=== PATIENT | male | born 1980 | race Caucasian/White ===

== ENCOUNTER 2019-02-09 11:52 | Emergency (ER) | payer OTHER ==
[~2019-02-09] VITALS: Ht 175.3 cm; Wt 90.7 kg
[2019-02-09] MEDS ORDERED: PENICILLIN V P500 MG PO (12:13)
== END 2019-02-09 12:21 | disposition home or self-care (01) ==
LOC: ED 11:52
DX: K08.89 Other specified disorders of teeth and supporting structures (principal); F17.200 Nicotine dependence, unspecified, uncomplicated
CPT/HCPCS: 99282

== ENCOUNTER 2022-11-29 13:13 | Emergency (ER) | payer OTHER ==
[~2022-11-29] VITALS: Ht 175.3 cm; Wt 98.8 kg
[~2022-11-29 13:13] MED LIST: PENICILLIN V P500 MG PO
[2022-11-29] MEDS ORDERED: PREDNISONE20 MG PO (14:36)
[2022-11-29 14:44] VITALS: BP 139/98
== END 2022-11-29 14:45 | disposition home or self-care (01) ==
LOC: ED 13:13
DX: M54.12 Radiculopathy, cervical region (principal); F17.200 Nicotine dependence, unspecified, uncomplicated; Z91.041 Radiographic dye allergy status
CPT/HCPCS: 99283

== ENCOUNTER 2023-12-24 05:50 | Day surgery (SDC) | payer OTHER ==
[2023-12-21 08:48] VITALS: BP 140/95
[~2023-12-24] VITALS: Ht 175.3 cm; Wt 97.7 kg
[~2023-12-24 05:50] MED LIST changes: +CYCLOBENZAPRINE10 MG PO; +D3-200050 MCG PO; +MIDAZOLAM HCL 5 MG/5 ML VIAL IV PRN; +NEURONTIN300 MG PO; +PREDNISONE20 MG PO; +QSYMIA 15 MG-91 EACH PO; +QSYMIA 7.5 MG-1 EACH PO; +VARENICLINE TART1 MG PO; +fentaNYL citrate 100 MCG/2 ML VIAL IV PRN
[2023-12-24 05:59] VITALS: BP 141/84
[2023-12-24] MEDS ORDERED: propofoL 200 MG/20 ML VIAL ONE (06:24)
[2023-12-24] MEDS ORDERED: LACTATED RINGER'S 1,000 ML IV SCH (07:00)
[2023-12-24] MEDS ORDERED: LIDOCAINE HCL 1% 5 ML SDV INJ ONE (07:00)
[2023-12-24] MEDS ORDERED: IBLOOD GLUCOSE TEST STRIP 1 EA TEST VI PRN (07:00)
--- NOTE | 2023-12-24 07:24 | NUR ---
PT GONE FOR PROCEDURE. PROVIDED PRAYER.
[2023-12-24] MEDS ORDERED: LACTATED RINGER'S 1,000 ML IV ONE (07:42)
--- NOTE | 2023-12-24 08:04 | NUR ---
12/24/23 0804 Ambrosio Carey 0753: PT ARRIVED TO PACU VIA STRETCHER. PT HAS ORAL AIRWAY IN PLACE ON 10L VIA MASK. PT NON AROUSABLE AT THIS TIME. REPORT RECIEVED FROM JAKUB ARREDONDO. 0804: PT REMAINS ON 10L VIA MASK WITH ORAL AIRWAY IN PLACE.
[2023-12-24 08:18] VITALS: BP 115/76
[2023-12-24] MEDS ORDERED: ATROPINE SULFATE 1 MG/ML VIAL ONE (08:30)
--- NOTE | 2023-12-24 09:52 | OR ---
[facility] [address], [place] [address] Signed DATE OF OPERATION: 12/24/2023 SURGEON: Estiven Mcarthur MD PREOPERATIVE DIAGNOSIS: Mother with multiple colonic polyps. POSTOPERATIVE DIAGNOSES: 1. 4 mm polyp at 18 cm in the rectum. 2. 6 mm pedunculated polyp at 50 cm in left colon (snare). 3. 4 mm polyp at 45 cm in the left colon. 4. Minimal sigmoid diverticulosis. PROCEDURE: Colonoscopy, snare polypectomy and hot biopsy. ESTIMATED BLOOD LOSS: None. INDICATIONS: Tank is a 43-year-old gentleman asked to see me for his initial colonoscopy. His mother has had multiple adenomatous polyps removed over the years. He is quite confident these were adenomatous polyps. Tank himself has no lower GI complaints. I gave him a pamphlet on colonoscopy. We had looked at that together. He understands the nature of the test. There is risk including, but not limited to gas bloating, crampy abdominal pain, bleeding, perforation requiring surgery, and missed diagnosis. We also reviewed the written instructions for the bowel prep line by line. He understands the need for monitored anesthesia care given his full face, yao and mustache along with his need for phentermine and Flexeril. He had expressed understanding and wished to proceed. PROCEDURE IN DETAIL: Tank was taken into our endoscopy suite and placed in the left lateral decubitus position. He was given monitored anesthesia care with propofol infusion per our nurse operations team leader. A digital rectal exam was performed. This was unremarkable. There were no external hemorrhoids. He had good sphincter tone. There were no masses. The adult colonoscope was introduced and advanced under direct visualization of camera without difficulty. His prep was quite excellent. We could easily see the appendiceal orifice and ileocecal valve. The scope was then slowly withdrawn. We took several pictures throughout for photodocumentation. We removed the above three polyps with the help of hot biopsy forceps and snare. The sigmoid colon did have a few diverticula. They were Electronically Signed By: ESTIVEN MCARTHUR MD 12/24/23 0952 PATIENT NAME: EVA COOMBS OPERATIVE REPORT DATE OF : 80 REPORT #: [id number] PHYSICIAN: ESTIVEN MCARTHUR MD PCP: KATERINE WESLEY REPORT IS CONFIDENTIAL AND NOT TO BE RELEASED WITHOUT AUTHORIZATION [facility] [address], [place] [address] Signed small to moderate in size, few in number and scattered about. Once in the rectum, the scope was retroflexed and there was no additional pathology noted above the anal canal. After this, the gas was suctioned out. The colonoscope removed. Tank tolerated the procedure quite well. RECOMMENDATIONS: I will see Tank back in my office in 7 to 14 days to review his results. I suspect he will be on the five year plan due to his family history and now his personal history. Estiven Mcarthur MD ALB/ANYIL /[id number] cc: [facility] Hunter Zamarripa MD Copies: ESTIVEN MCARTHUR MD ~ Electronically Signed By: ESTIVEN MCARTHUR MD 12/24/23 0952 PATIENT NAME: EVA COOMBS OPERATIVE REPORT DATE OF : 80 REPORT #: [id number] PHYSICIAN: ESTIVEN MCARTHUR MD PCP: KATERINE WESLEY REPORT IS CONFIDENTIAL AND NOT TO BE RELEASED WITHOUT AUTHORIZATION
--- NOTE | 2023-12-28 10:34 | PATH ---
[facility] [address] [place], [place] [address] Signed SPECIMEN(S): A RECTAL POLYP AT 18 CM SPECIMEN(S): B DESCENDING COLON POLYP AT 50 CM SPECIMEN(S): C DESCENDING COLON POLYP AT 45 CM SPECIMEN SOURCE: A. RECTAL POLYP AT 18 CM B. DESCENDING COLON POLYP AT 50 CM C. DESCENDING COLON POLYP AT 45 CM CLINICAL HISTORY: Initial screening, family history polyps FINAL PATHOLOGIC DIAGNOSIS: A. Rectum polyp at 18 cm: - Hyperplastic polyp, negative for dysplasia. B. Descending/left polypectomy at 50 cm: - Tubular adenoma, negative for high-grade dysplasia. C. Left/descending polypectomy at 45 cm: - [place] serrated lesion, negative for dysplasia. NA MICROSCOPIC EXAMINATION: Histologic sections of all submitted blocks are examined by light microscopy. These findings, together with the gross examination, support the pathologic diagnosis. GROSS DESCRIPTION: A. The specimen, labeled and designated "Kelsie Coombs., per requisition rectum polyp at 18 cm," is received in formalin and consists of 2 benitez tissue fragments ranging from 0.3 to 0.4 cm in greatest dimension. The specimen is entirely submitted in cassette A1. B. The specimen, labeled and designated "Kelsie Coombs., per requisition descending/left polypectomy at 50 cm," is received in formalin and consists of a single benitez tissue fragment that is 0.5 cm in greatest dimension. The specimen is entirely submitted in cassette B1. C. The specimen, labeled and designated "Kelsie Coombs., left/descending polypectomy at 45 cm," is received in formalin and consists of 2 benitez tissue fragments ranging from 0.2 to 0.3 cm in greatest dimension. The specimen is entirely submitted in cassette C1. AA (under the direct supervision of a pathologist) PATIENT NAME: EVA COOMBS PATHOLOGY DATE OF : 80 REPORT #: [id number] PHYSICIAN: NIKOLAY PENDLETON PCP: KATERINE WESLEY REPORT IS CONFIDENTIAL AND NOT TO BE RELEASED WITHOUT AUTHORIZATION [facility] [address] [place], [place] [address] Signed The Gross Description was prepared using a voice recognition system. The report was reviewed for accuracy; however, sound-alike word errors, addition and/or deletions may occur. If there is any question about this report, please contact Client Services. ADDITIONAL NOTES: Immunohistochemical and/or in situ hybridization studies if performed in this case included appropriate positive controls that reacted as expected. This test was developed and its performance characteristics determined by [facility]. It has not been cleared or approved by the U.S. Food and Drug Administration. The FDA has determined that such clearance or approval is not necessary. This test is used for clinical purposes. It should not be regarded as investigational or for research. [facility] is certified under the Clinical Laboratory Improvement Amendments of 1988 (CLIA) as qualified to perform high complexity clinical laboratory testing. PERFORMING LABORATORY: Technical component was performed by [facility], [address] [place] [address] (CLIA# [id number]). Professional interpretation was performed by [facility] - [facility], [address] [place] [address] (CLIA#: [id number]). Diagnostician: Yuridia Jean-Baptiste MD Pathologist Electronically Signed 12/28/2023 Copies: ~ PATIENT NAME: MALVINEVA AAKASH PATHOLOGY DATE OF : 80 REPORT #: [id number] PHYSICIAN: NIKOLAY PATHOLOGY PCP: KATERINE WESLEY REPORT IS CONFIDENTIAL AND NOT TO BE RELEASED WITHOUT AUTHORIZATION
== END 2023-12-24 08:30 | disposition home or self-care (01) ==
LOC: DS 05:50
PROVIDERS: ATTEND Colon & Rectal Surgery
PROC: 0DBP8ZX Excision of Rectum, Via Natural or Artificial Opening Endoscopic, Diagnostic (ICD-10-PCS; 2023-12-24)
PROC: 0DBG8ZZ Excision of Left Large Intestine, Via Natural or Artificial Opening Endoscopic (ICD-10-PCS; principal; 2023-12-24 07:30)
DX: Z12.11 Encounter for screening for malignant neoplasm of colon (principal); D12.4 Benign neoplasm of descending colon; K62.1 Rectal polyp; K57.30 Diverticulosis of large intestine without perforation or abscess without bleeding; K21.9 Gastro-esophageal reflux disease without esophagitis; F17.200 Nicotine dependence, unspecified, uncomplicated; G89.29 Other chronic pain; M54.12 Radiculopathy, cervical region; Z91.040 Latex allergy status; Z91.030 Bee allergy status; Z88.8 Allergy status to other drugs, medicaments and biological substances; Z83.719 Family history of colon polyps, unspecified
CPT/HCPCS: 00811; 88305; J0461; J2704; J7121

== ENCOUNTER 2024-03-05 20:37 | Emergency (ER) | payer OTHER ==
[~2024-03-05] VITALS: Ht 175.3 cm; Wt 98.9 kg
[~2024-03-05 20:37] MED LIST changes: -MIDAZOLAM HCL 5 MG/5 ML VIAL IV PRN; -fentaNYL citrate 100 MCG/2 ML VIAL IV PRN
[2024-03-05] MEDS ORDERED: TRAMADOL HCL 50 MG HOME.PACK PO ONE (22:30)
[2024-03-05] MEDS ORDERED: methylPREDNISolone 4 MG HOME.PACK PO ONE (22:30)
[2024-03-05 22:40] VITALS: BP 140/95
== END 2024-03-05 22:44 | disposition home or self-care (01) ==
LOC: ED 20:37
DX: M70.21 Olecranon bursitis, right elbow (principal); F17.200 Nicotine dependence, unspecified, uncomplicated; Z88.8 Allergy status to other drugs, medicaments and biological substances; Z91.041 Radiographic dye allergy status; Z79.899 Other long term (current) drug therapy
CPT/HCPCS: 73080; 99283; A9270